=== PATIENT | female | born 1995 | race African-American/Black ===

== ENCOUNTER 2017-06-08 23:51 | Emergency (ER) | payer SELFPAY ==
--- NOTE | 2017-06-09 00:44 | ER Document Report ---
ED General - General Chief Complaint: STD Exposure Stated Complaint: STD CHECK Time Seen by Provider: 06/09/17 00:36 Notes: Patient is a 22-year-old female who presents with complaint of possible STD. She says that she has had some foul-smelling whitish discharge for approximately 10 days. She says that she asked her boyfriend to get tested before the start having sex. He told her that he never heard back and therefore thinks his results are negative but she says that she has been somewhat put off about this and she is unsure if he is telling the truth. No fevers. No vomiting. She has had a slight cough. She does smoke. No abnormal vaginal bleeding or discharge. She does not think she be at this time. She does not always for protection. No abnormal vaginal bleeding. No dysuria. - Related Data Allergies/Adverse Reactions: No Known Allergies Allergy (Verified 06/09/17 01:17) Home Medications: Current Home Medications No Home Medications 06/09/17 [History] Past Medical History - Social History Smoking Status: Current Every Day Smoker Frequency of alcohol use: None Drug Abuse: None Family History: Reviewed & Not Pertinent Renal/ Medical History: Denies: Hx Peritoneal Dialysis Review of Systems - Review of Systems Notes: My Normal Review Basic REVIEW OF SYSTEMS: CONSTITUTIONAL : Denies fever, chills, or sweats. Denies recent illness. RESPIRATORY: Some dry cough. GASTROINTESTINAL: Denies abdominal pain. Denies nausea, vomiting, or diarrhea. Denies constipation. Last BM: GENITOURINARY: Denies difficulty urinating, painful urination, burning, frequency, or blood in urine. FEMALE GENITOURINARY: Abnormal vaginal discharge. MUSCULOSKELETAL: Denies neck or back pain or joint pain or swelling. SKIN: Denies rash or skin lesions. NEUROLOGICAL: Denies altered mental status or loss of consciousness. Denies headache. Denies weakness or paralysis or loss of use of either side. Denies problems with gait or speech. Denies sensory or motor loss. ALL OTHER SYSTEMS REVIEWED AND NEGATIVE. Physical Exam - Vital signs Vitals: Temp Pulse Resp BP Pulse Ox 98.3 F 57 L 16 128/59 H 99 06/09/17 00:08 06/09/17 00:08 06/09/17 00:08 06/09/17 00:08 06/09/17 00:08 - Notes Notes: General Appearance: Well nourished, alert, cooperative, no acute distress, no obvious discomfort. Well-appearing. Vitals: reviewed, See vital signs table. Head: no swelling or tenderness to the head Eyes: PERRL, EOMI, Conjuctiva clear Neck: Supple, no neck tenderness, No thyromegaly Lungs: No wheezing, No rales, No rhonci, No accessory muscle use, good air exchange bilaterally. Heart: Normal rate, Regular rythm, No murmur, no rub Abdomen: Normal BS, soft, No rigidity, No abdominal tenderness, No guarding, no rebound, no abdominal masses, no organomegaly Pelvic exam: Normal external genitalia. Some whitish discharge in vaginal vault. No blood. Extremities: strength 5/5 in all extremities, good pulses in all extremities, no swelling or tenderness in the extremities, no edema. Skin: warm, dry, appropriate color, no rash Neuro: speech clear, oriented x 3, normal affect, responds appropriately to questions. Course - Re-evaluation Re-evalutation: 06/09/17 02:56 Based on patient's history I do suspect that she most likely does have an STD. She does not want to wait for the swabs come back. She prefers prophylactic treatment. I did give her a dose of Rocephin as well as a dose of azithromycin. Patient was discharged home. I did include for her the culture callback number. Encouraged her return to ER if she has any worsening or symptoms, abdominal pain, pelvic pain, or she feels unwell. She is encouraged to avoid sexual activity until she knows that her and her partners are both clear of infection. Patient agrees with plan and will be discharged home. Dictation of this chart was performed using voice recognition software; therefore, there may be some unintended grammatical errors. - Vital Signs Vital signs: Temp Pulse Resp BP Pulse Ox 98.3 F 57 L 16 128/59 H 99 06/09/17 00:08 06/09/17 00:08 06/09/17 00:08 06/09/17 00:08 06/09/17 00:08 Discharge - Discharge Clinical Impression: Vaginal discharge Condition: Good Disposition: HOME, SELF-CARE Additional Instructions: We obtained swabs to check for vaginal infection. These swabs will result by the morning. Please call [phone] for the results of swabs. You have been treated with antibiotics up front so if your swabs are positive you will not need further treatment. Do not be sexually active until you and your partners swabs are negative. Please return to the ER if you have pain, fevers, vomiting, or feel unwell. Forms: Return to Work
[2017-06-09 01:22] LABS: APPEARANCE,URINE SLIGHTLY-CLOUDY; BILIRUBIN,URINE NEGATIVE (NEGATIVE); GLUCOSE, URINE NEGATIVE (NEGATIVE); KETONES,URINE NEGATIVE (NEGATIVE); LEUKOCYTE ESTERASE,URINE NEGATIVE (NEGATIVE); NITRITE,URINE NEGATIVE (NEGATIVE); PROTEIN,URINE NEGATIVE (NEGATIVE); URINE SPECIFIC GRAVITY 1.024; UROBILINOGEN,URINE NEGATIVE mg/dL (<2.0)
[2017-06-09] MEDS ORDERED: AZITHROMYCIN 250 MG TABLET PO ONE (01:25)
[2017-06-09] MEDS ORDERED: CEFTRIAXONE INJ 250 MG VIAL IM ONE (01:26)
[2017-06-09] MEDS ORDERED: LIDOCAINE 1% INJ-PF (10 MG/ML) 30 ML SDV INFIL ONE (01:26)
[2017-06-09 03:06] LABS: CHLAM PCR NOT DETECTED (NOT DETECT)
[2017-06-09 03:28] VITALS: BP 103/45
== END 2017-06-09 03:30 | disposition home or self-care (01) ==
LOC: ER 23:51
DX: N89.8 Other specified noninflammatory disorders of vagina (principal)
CPT/HCPCS: 99283; 96372; 87210; 81001; 87491; 87591; J3490; J0696

== ENCOUNTER 2017-07-19 11:44 | Emergency (ER) | payer SELFPAY ==
[2017-07-19] MEDS ORDERED: ACETAMINOPHEN 325 MG TABLET PO ONE (12:43)
[2017-07-19] MEDS ORDERED: NORMAL SALINE 1000 ML 1,000 ML IV ONE (12:43)
[2017-07-19] MEDS ORDERED: ONDANSETRON HCL INJ/PF 4 MG/2 ML SDV IV ONE (12:43)
--- NOTE | 2017-07-19 12:49 | ER Document Report ---
ED General - General Chief Complaint: Abdominal Pain Stated Complaint: ABDOMINAL PAIN Time Seen by Provider: 07/19/17 12:36 Notes: 22-year-old female whose last menstrual period was approximately 4 weeks ago presents the emergency department complaining of cramping lower abdominal pain suprapubic and right lower quadrant associated with vomiting and headache that gets worse with movement. Denies vaginal bleeding, denies dysuria. Has not yet had an US for dates. TRAVEL OUTSIDE OF THE [place] IN LAST 30 DAYS: No - Related Data Allergies/Adverse Reactions: No Known Allergies Allergy (Verified 06/09/17 01:17) Home Medications: Current Home Medications No Home Medications 07/19/17 [History] Past Medical History - General Information source: Patient - Social History Smoking Status: Current Every Day Smoker Chew tobacco use (# tins/day): No Smoking Education Provided: Yes - 5 minutes Frequency of alcohol use: None Drug Abuse: None - Quit smoking marijuana 1 week ago. Lives with: Spouse/Significant other Family History: Reviewed & Not Pertinent Patient has suicidal ideation: No Patient has homicidal ideation: No Renal/ Medical History: Denies: Hx Peritoneal Dialysis Past Surgical History: Reports: Hx Oral Surgery - Immunizations Hx Diphtheria, Pertussis, Tetanus Vaccination: Yes Review of Systems - Review of Systems Constitutional: No symptoms reported EENT: No symptoms reported Cardiovascular: No symptoms reported Respiratory: No symptoms reported Gastrointestinal: See HPI, Abdominal pain, Nausea, Vomiting Genitourinary: No symptoms reported. denies: Burning, Dysuria Female Genitourinary: See HPI, Last menstrual period - 3 weeks ago, -: Yes All other systems reviewed and negative Physical Exam - Vital signs Vitals: Temp Pulse Resp BP Pulse Ox 98.4 F 63 18 112/68 99 07/19/17 11:51 07/19/17 11:51 07/19/17 11:51 07/19/17 11:51 07/19/17 11:51 Interpretation: Normal - Notes Notes: GENERAL: Alert, interacts well. Tearful, gagging in room, no active vomiting. HEAD: Normocephalic, atraumatic EYES: Pupils equal, round and reactive to light, extraocular movements intact. ENT: Oral mucosa moist, tongue midline. NECK: Full range of motion, supple, trachea midline. LUNGS: Clear to auscultation bilaterally, no wheezes, rales or rhonchi, no respiratory distress. HEART: Regular rate and rhythm, no murmurs, gallops, rubs. ABDOMEN: Soft, suprapubic and right lower quadrant tenderness to palpation, no guarding, rigidity or rebounding, nondistended, bowel sounds present in all 4 quadrants. EXTREMITIES: Moves all 4 extremities spontaneously, no edema, radial and dorsalis pedis pulses 2/4 bilaterally. No cyanosis. NEUROLOGICAL: Alert and oriented x3, normal speech. PSYCH: Anxious and tearful. SKIN: Warm, Dry, normal turgor, no rashes or lesions noted. Course - Re-evaluation Re-evalutation: 07/19/17 15:36 Quantitative beta-hCG is 25,173, urinalysis unremarkable. Ultrasound has been paged multiple times, still unable to take this patient ultrasound. Patient states she is going to need to leave very shortly. Patient is aware that I cannot rule out an ectopic without ultrasound. Patient is not unstable at this time and her abdominal exam is relatively reassuring. Patient will be given a prescription for an outpatient transvaginal ultrasound to rule out ectopic . She will return for vaginal bleeding, lightheadedness, worsening pain or any new or concerning symptoms. 07/19/17 16:43 Patient did end up being able to stay for the ultrasound. Patient will be referred to [facility] for further follow-up, trending of quantitative hCG and repeat ultrasound in approximately a week. Ultrasound shows gestational sac measuring 6 weeks 2 days, questionable pole identified, hypoechoic area seen in the right ovary which could represent a corpus luteum sac. - Vital Signs Vital signs: Temp Pulse Resp BP Pulse Ox 98.4 F 63 18 112/68 99 07/19/17 11:51 07/19/17 11:51 07/19/17 12:15 07/19/17 11:51 07/19/17 11:51 - Laboratory Result Diagrams: 07/19/17 12:50 07/19/17 12:50 Laboratory results interpreted by me: 07/19/17 07/19/17 07/19/17 12:50 12:50 12:50 RDW 15.0 H Beta HCG, Quant 75901.00 H Urine Ketones TRACE H Discharge - Discharge Clinical Impression: Abdominal pain affecting , antepartum Condition: Stable Disposition: HOME, SELF-CARE Additional Instructions: Today your ultrasound showed a that is in the uterus. Since we were not able to see the baby today just the place where the baby will go you will need to have your ultrasound repeated in approximately 1 week. There is also something that looks like a cyst on your right ovary. If your pain worsens you need to return. You also need to continue to follow-up with either the health department or [facility] should your pain continue even if it does not worsen. Return here for worsening pain, vaginal bleeding, dizziness or any new or concerning symptoms. You may also follow-up through the health department. They will help to arrange insurance, WIC and other resources that she may need. They will also help you with your care and vitamins. Please feel free to return to the emergency department at any time. Forms: Follow-Up Radiology Testing, Follow-Up Outpatient Testing Referrals: [facility] [Provider Group] - Follow up as needed
[2017-07-19 13:18] LABS: APPEARANCE,URINE SLIGHTLY-CLOUDY; BILIRUBIN,URINE NEGATIVE (NEGATIVE); GLUCOSE, URINE NEGATIVE (NEGATIVE); KETONES,URINE TRACE mg/dL (NEGATIVE); LEUKOCYTE ESTERASE,URINE NEGATIVE (NEGATIVE); NITRITE,URINE NEGATIVE (NEGATIVE); PROTEIN,URINE NEGATIVE (NEGATIVE); URINE SPECIFIC GRAVITY 1.025; UROBILINOGEN,URINE NEGATIVE mg/dL (<2.0)
[2017-07-19 13:19] LABS: ABSOLUTE EOSINOPHILS # (AUTO) 0.1 10^3/uL (0.0-0.6); ABSOLUTE LYMPHOCYTES (AUTO) 1.7 10^3/uL (0.5-4.7); ABSOLUTE MONOCYTES (AUTO) 0.3 10^3/uL (0.1-1.4); ABSOLUTE NEUT (AUTO) 4.5 10^3/uL (1.7-8.2); BASOPHILS % (AUTO) 0.3 % (0-2); EOSINOPHILS % (AUTO) 0.9 % (0-6); HEMOGLOBIN 13.7 g/dL (12.0-15.5); HGB HCT DIFFERENCE 1.1; LYMPHOCYTES % (AUTO) 25.3 % (13-45); MEAN CORPUSCULAR HEMOGLOBIN 30.3 pg (27.0-33.4); MEAN CORPUSCULAR HGB CONC 34.2 g/dL (32.0-36.0); MEAN CORPUSCULAR VOLUME 89 fl (80-97); MONOCYTES % (AUTO) 5.2 % (3-13); RED BLOOD COUNT 4.51 10^6/uL (3.72-5.28); SEGMENTED NEUTROPHILS % (AUTO) 68.3 % (42-78); WHITE BLOOD COUNT 6.6 10^3/uL (4.0-10.5)
[2017-07-19 13:41] LABS: ALANINE AMINOTRANSFERASE 28 U/L (9-52); ALBUMIN 4.9 g/dL (3.5-5.0); ALKALINE PHOSPHATASE 51 U/L (38-126); ANION GAP 12 (5-19); ASPARTATE AMINO TRANSFERASE 23 U/L (14-36); BILIRUBIN,DIRECT 0.3 mg/dL (0.0-0.4); BILIRUBIN,TOTAL 0.7 mg/dL (0.2-1.3); BLOOD UREA NITROGEN 12 mg/dL (7-20); CALCIUM 9.9 mg/dL (8.4-10.2); CARBON DIOXIDE 25 mmol/L (22-30); CHLORIDE 103 mmol/L (98-107); CREATININE RESULT 0.56 mg/dL (0.52-1.25); GLUCOSE 81 mg/dL (75-110); POTASSIUM 4.2 mmol/L (3.6-5.0); SODIUM 139.5 mmol/L (137-145)
--- NOTE | 2017-07-19 16:39 | RADIOLOGY REPORT (SQ) ---
EXAM DESCRIPTION: U/S OB TRANSVAG W/DOPPLER COMPLETED DATE/TIME: 07/19/2017 4:22 pm REASON FOR STUDY: , cramping low abd pain COMPARISON: None. TECHNIQUE: Transvaginal static and realtime grayscale images acquired of the pelvis. Additional earl cted spectral and color Doppler images recorded. All images stored on PACs. bHC,173 LIMITATIONS: None. FINDINGS: UTERUS: No masses. No anomalies. GESTATIONAL SAC: Gestational sac is identified measuring 6 weeks 2 days YOLK SAC: Not definitely visualized. POLE: Questionable pole is identified. RIGHT ADNEXA: A hypoechoic area is identified in the right ovary with internal debris measuring 1.7 x 1.8 x 2.6 cm in diameters. This could represent a corpus luteum cyst. LEFT ADNEXA: Left ovary is not visualized. FREE FLUID: Free fluid is identified in the posterior cul-de-sac. OTHER: No other significant finding. IMPRESSION: POSSIBLE EARLY INTRAUTERINE . BHCG LEVEL APPROPRIATE FOR ENDOMETRIAL FINDINGS. CONSIDER F/U BHCG AND/OR ULTRASOUND FOR VERIFICATION AND TO EXCLUDE ECTOPIC . Trimester of : First - 0 to 13 weeks. TECHNICAL DOCUMENTATION: JOB ID: [id number] [employer]- All Rights Reserved
[2017-07-19 17:13] VITALS: BP 114/59
== END 2017-07-19 17:08 | disposition home or self-care (01) ==
LOC: ER 11:44
DX: O26.891 Other specified pregnancy related conditions, first trimester (principal); O21.9 Vomiting of pregnancy, unspecified; O99.331 Smoking (tobacco) complicating pregnancy, first trimester; Z71.6 Tobacco abuse counseling; Z3A.01 Less than 8 weeks gestation of pregnancy
CPT/HCPCS: 99406; 99284; 96361; 96374; 36415; 84702; 85025; 80053; 81001; 76817; 93976; J2405; J7030

== ENCOUNTER 2018-01-16 22:27 | Outpatient (CLI) | payer MEDICAID ==
[2018-01-16 23:28] LABS: AMNISURE (ROM) NEGATIVE (NEGATIVE)
[2018-01-16 23:46] LABS: URINE AMPHETAMINES SCREEN NEGATIVE; URINE BARBITURATES SCREEN NEGATIVE; URINE BENZODIAZEPINES SCREEN NEGATIVE; URINE COCAINE SCREEN NEGATIVE; URINE MARIJUANA (THC) SCREEN NEGATIVE; URINE METHADONE SCREEN NEGATIVE; URINE PHENCYCLIDINE SCREEN NEGATIVE
[2018-01-16 23:47] LABS: T.VAGINALIS (WET MOUNT) NO TRICHOMONAS SEEN; WBCS (WET MOUNT) 4+ WBCS SEEN; YEAST (WET MOUNT) NO YEAST SEEN
[2018-01-16 23:48] LABS: BACTERIA (WET MOUNT) 4+ BACTERIA SEEN; RBCS (WET MOUNT) 1+ RBCS SEEN
[2018-01-16 23:52] LABS: APPEARANCE,URINE CLEAR; BILIRUBIN,URINE NEGATIVE (NEGATIVE); COLOR,URINE YELLOW; GLUCOSE, URINE NEGATIVE (NEGATIVE); KETONES,URINE NEGATIVE (NEGATIVE); PROTEIN,URINE NEGATIVE (NEGATIVE); URINE SPECIFIC GRAVITY 1.025; UROBILINOGEN,URINE NEGATIVE mg/dL (<2.0)
[2018-01-16 23:53] LABS: LEUKOCYTE ESTERASE,URINE LARGE (NEGATIVE); NITRITE,URINE NEGATIVE (NEGATIVE)
[2018-01-17 00:47] LABS: CHLAM PCR NOT DETECTED (NOT DETECT); GON PCR NOT DETECTED (NOT DETECT)
[2018-01-17] MEDS ORDERED: METRONIDAZOLE 500 MG TABLET PO ONE (00:51)
[2018-01-17] MEDS ORDERED: METRONIDAZOLE 500 MG TABLET ONE (00:56)
== END 2018-01-17 01:11 | disposition home or self-care (01) ==
LOC: LC 22:27
PROVIDERS: ATTEND Student in an Organized Health Care Education/Training Program
PROC: 4A1HXCZ Monitoring of Products of Conception, Cardiac Rate, External Approach (ICD-10-PCS; principal; 2018-01-16)
DX: O23.593 Infection of other part of genital tract in pregnancy, third trimester (principal); O26.893 Other specified pregnancy related conditions, third trimester; E86.0 Dehydration; Z3A.31 31 weeks gestation of pregnancy
CPT/HCPCS: 84112; 87210; 81001; 87081; 80307; 87491; 87591; 59899; Q0114; J3490

== ENCOUNTER 2018-03-22 19:43 | Inpatient (IN) | payer MEDICAID ==
[2018-03-22 20:17] LABS: APPEARANCE,URINE CLOUDY; BILIRUBIN,URINE NEGATIVE (NEGATIVE); COLOR,URINE YELLOW; GLUCOSE, URINE NEGATIVE (NEGATIVE); KETONES,URINE TRACE mg/dL (NEGATIVE); LEUKOCYTE ESTERASE,URINE LARGE (NEGATIVE); NITRITE,URINE NEGATIVE (NEGATIVE); PROTEIN,URINE 30 mg/dL (NEGATIVE); URINE SPECIFIC GRAVITY 1.024
[2018-03-22 20:33] LABS: URINE AMPHETAMINES SCREEN NEGATIVE; URINE BARBITURATES SCREEN NEGATIVE; URINE BENZODIAZEPINES SCREEN NEGATIVE; URINE COCAINE SCREEN NEGATIVE; URINE MARIJUANA (THC) SCREEN NEGATIVE; URINE METHADONE SCREEN NEGATIVE; URINE PHENCYCLIDINE SCREEN NEGATIVE
[2018-03-22] MEDS ORDERED: HYDROXYZINE PAMOATE 50 MG CAPSULE ONE (22:08)
[2018-03-22] MEDS ORDERED: LIDOCAINE 1% INJ-PF (10 MG/ML) 30 ML SDV ONE (22:08)
[2018-03-22] MEDS ORDERED: CEFTRIAXONE INJ 1000 MG VIAL ONE (22:08)
[2018-03-22] MEDS ORDERED: CEFTRIAXONE INJ 1000 MG VIAL IM ONE (22:09)
[2018-03-22] MEDS ORDERED: LIDOCAINE 1% INJ-PF (10 MG/ML) 30 ML SDV INJ ONE (22:09)
[2018-03-22] MEDS ORDERED: HYDROXYZINE PAMOATE 50 MG CAPSULE PO ONE (22:10)
[2018-03-23] MEDS ORDERED: RINGERS SOLUTION,LACTATED 1,000 ML IV PRN (00:07)
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
[2018-03-23 00:16] LABS: CHLAM PCR NOT DETECTED (NOT DETECT); GON PCR NOT DETECTED (NOT DETECT)
[2018-03-23] MEDS ORDERED: MISOPROSTOL 0.2 MG TABLET ONE (00:19)
[2018-03-23] MEDS ORDERED: OXYTOCIN/NORMAL SALINE 20 UNIT/1,000 ML RTUINJ ONE (00:19)
[2018-03-23] MEDS ORDERED: LIDOCAINE 1% INJ-PF (10 MG/ML) 30 ML SDV ONE (00:19)
[2018-03-23 00:30] LABS: HEMOGLOBIN 11.4 g/dL (12.0-15.5); MEAN CORPUSCULAR HEMOGLOBIN 26.6 pg (27.0-33.4); MEAN CORPUSCULAR HGB CONC 33.5 g/dL (32.0-36.0); MEAN CORPUSCULAR VOLUME 80 fl (80-97); PLATELET COUNT 189 10^3/uL (150-450); RED BLOOD COUNT 4.27 10^6/uL (3.72-5.28); RED CELL DISTRIBUTION WIDTH 15.4 % (11.5-14.0); WHITE BLOOD COUNT 8.9 10^3/uL (4.0-10.5)
[2018-03-23] MEDS ORDERED: PSEUDOEPHEDRINE HCL 30 MG TABLET PO PRN (01:08)
[2018-03-23] MEDS ORDERED: OXYTOCIN/NORMAL SALINE 20 UNIT/1,000 ML RTUINJ IV PRN (01:08)
[2018-03-23] MEDS ORDERED: ZOLPIDEM TARTRATE 5 MG TABLET PO PRN (01:08)
[2018-03-23] MEDS ORDERED: MEASLES,MUMPS&RUBELLA VACC/PF 0.5 ML VIAL SUBCUT PRN (01:08)
[2018-03-23] MEDS ORDERED: PROMETHAZINE HCL 25 MG TABLET PO PRN (01:08)
[2018-03-23] MEDS ORDERED: DIPH/PERTUSS(ACELL)/TETANUS VAC/PF 0.5 ML SYR (>=10YO) IM PRN (01:08)
[2018-03-23] MEDS ORDERED: MAGNESIUM HYDROXIDE SUSP 30 ML UDCUP PO PRN (01:08)
[2018-03-23] MEDS ORDERED: DIPHENHYDRAMINE HCL 25 MG CAPSULE PO PRN (01:08)
[2018-03-23] MEDS ORDERED: PROMETHAZINE HCL INJ 25 MG/1 ML VIAL IV PRN (01:08)
[2018-03-23] MEDS ORDERED: GLYCERIN/WITCH HAZEL LEAF 1 EACH MED..PAD TP PRN (01:08)
[2018-03-23] MEDS ORDERED: PROMETHAZINE HCL 25 MG SUPP.RECT PR PRN (01:08)
[2018-03-23] MEDS ORDERED: DIBUCAINE 1% OINTMENT 28 GM TP PRN (01:08)
[2018-03-23] MEDS ORDERED: BENZOCAINE/MENTHOL AEROSOL SPRAY 56 ML TOP PRN (01:08)
[2018-03-23] MEDS ORDERED: ACETAMINOPHEN 650 MG SUPP.RECT PR PRN (01:08)
[2018-03-23] MEDS ORDERED: NA PHOS,M-B/NA PHOS,DI-BA (ADULT) 133 ML ENEMA PR PRN (01:08)
[2018-03-23] MEDS ORDERED: IBUPROFEN 800 MG TABLET ONE (01:31)
--- NOTE | 2018-03-23 02:22 | Warning Signs in Babies ---
VOD Warning Signs Datetime Report Generated by [facility]: 03/23/2018 02:22 VOD#608 -Warning Signs in Babies: Needs to be viewed. (01/16/2018 22:29:Dayanara Harris RN)
--- NOTE | 2018-03-23 03:43 | Delivery Summary ---
Del Sum A-C Datetime Report Generated by CPN: 03/23/2018 03:43 DELIVERY PERSONNEL DELIVERY PERSONNEL: [id number] Delivery Doctor:: Linda Banks MD Labor and Delivery Nurse:: Dayanara Harris jigger crown pouncing machine operator Nurse:: Marti Wilde RN Licensing And Registration Director/CENTRAL OFFICE SUPERVISOR: Alfredo Ertel, CENTRAL OFFICE SUPERVISOR MATERNAL INFORMATION Delivery Anesthesia: None Medications After Delivery: Pitocin Drip 20 Units/1000ml NSS Estimated Blood Loss (ml): 200 Maternal Complications: Precipitous Labor (<3hrs) LABOR SUMMARY EDC: 03/17/2018 00:00 No. Babies in Womb: 1 Attempted: No Labor Anesthesia: None LABOR INFORMATION Reason for Induction: Not Applicable Onset of Labor: 03/23/2018 00:01 Complete Dilatation: 03/23/2018 00:46 Oxytocin: N/A Group B Beta Strep: Negative Antibiotics # of Doses: 0 Antibiotics Time of Last Dose: N/A Name of Antibiotic Given: N/A Steroids Given: None Reason Steroids Not Administered: Not Applicable MEMBRANES Membranes Rupture Method: Artificial Rupture of Membranes: 03/23/2018 00:45 Length of Rupture (hr): 0.23 Amniotic Fluid Color: Clear Amniotic Fluid Amount: Small Amniotic Fluid Odor: Normal STAGES OF LABOR Stage 1 hr: 0 Stage 1 min: 45 Stage 2 hr: 0 Stage 2 min: 13 Stage 3 hr: 0 Stage 3 min: 3 Total Time in Labor hr: 1 Total Time in Labor min: 1 VAGINAL DELIVERY Episiotomy: None Laceration #1: None Laceration Extension #1: N/A Sponge Count Correct: N/A Sharps Count Correct: N/A CSECTION DELIVERY Primary Indication: N/A Secondary Indication: N/A CSection Incidence: N/A Labor: N/A Elective: N/A CSection Incision: N/A BABY A INFORMATION Delivery Date/Time: 03/23/2018 00:59 Method of Delivery: Vaginal Born in Route : No : N/A Forceps: N/A Vacuum Extraction: N/A Shoulder Dystocia : No PRESENTATION/POSITION BABY A Presentation: Cephalic Cephalic Presentation: Vertex Vertex Position: Left Occipital Anterior Breech Presentation: N/A PLACENTA INFORMATION BABY A Placenta Delivery Time : 03/23/2018 01:02 Placenta Method of Delivery: Spontaneous Placenta Status: Delivered SCORES BABY A Heart Rate 1 min: >100 bpm Resp Effort 1 min: Good Cry Reflex Irritability 1 min: Cough or Sneeze or Pulls Away Muscle Tone 1 min: Active Motion Color 1 min: Body [place], Extremities Blue Resuscitation Effort 1 min: Tactile Stimulation SCORE 1 MIN: 9 Heart Rate 5 min: >100 bpm Resp Effort 5 min: Good Cry Reflex Irritability 5 min: Cough or Sneeze or Pulls Away Muscle Tone 5 min: Active Motion Color 5 min: Body [place], Extremities Blue SCORE 5 MIN: 9 INFORMATION BABY A Gestational Age at Delivery: 40.6 Gestational Status: Full Term- 39- 40.6 Weeks Infant Outcome : Liveborn Infant Condition : Stable Infant Sex: Male IDENTIFICATION BABY A Verification Date/Time: 03/23/2018 01:12 ID Band Number: [id number] Mother's Name Verified: Yes RN Verifying : Grecia Tirado, RN / K Rooco, RN WEIGHT/LENGTH BABY A Infant Birthweight (gm): 3790 Infant Weight (lb): 8 Weight (oz): 6 Length (in): 20.00 Infant Length (cm): 50.80 CORD INFORMATION BABY A No. Cord Vessels: 3 Nuchal Cord : N/A Cord Blood Taken: Yes-For Storage (Mom's Blood type +) Infant Suction: Mouth; Nose ASSESSMENT BABY A Complications: Other Complications- Other: terminal mec Physical Findings at Delivery: Within Normal Limits Physical Findings- Other: initial assessment to be performed by nursery nurse Respirations: Appears Normal Skin to Skin: Yes Skin to Skin Time (min): 60 Beer Cooler/ALS Called : No Care By: Fabiano Wilde RN Transferred To: Remains with Mother BABY B INFORMATION : N/A SIGNATURES Signature: with User ID: [email or web address]
[2018-03-23] MEDS: ACETAMINOPHEN WITH CODEINE #3 TABLET PO PRN ×3 (07:17→18:01)
[2018-03-23] MEDS: IBUPROFEN 800 MG TABLET PO SCH ×3 (07:39→22:04)
[2018-03-23] MEDS: FAMOTIDINE 20 MG TABLET PO SCH ×2 (09:58→22:05)
[2018-03-23] MEDS: SENNOSIDES/DOCUSATE 8.6-50 MG 1 EACH TABLET PO SCH (09:58)
[2018-03-23] MEDS: DOCUSATE SODIUM 100 MG CAPSULE PO SCH ×2 (09:58→17:32)
[2018-03-23] MEDS: PRENATAL VITAMIN W DHA CAPSULE PO SCH (09:59)
[2018-03-23] MEDS: FERROUS SULFATE 325 MG TABLET PO SCH ×2 (09:59→17:32)
[2018-03-23] MEDS: NITROFURANTOIN MONOHYD/M-CRYST 100 MG CAPSULE PO SCH (18:00)
[2018-03-24] MEDS: IBUPROFEN 800 MG TABLET PO SCH ×3 (06:16→22:42)
[2018-03-24 07:46] LABS: HEMATOCRIT 30.9 % (36.0-47.0); HEMOGLOBIN 10.1 g/dL (12.0-15.5); MEAN CORPUSCULAR HEMOGLOBIN 26.1 pg (27.0-33.4); MEAN CORPUSCULAR HGB CONC 32.6 g/dL (32.0-36.0); MEAN CORPUSCULAR VOLUME 80 fl (80-97); PLATELET COUNT 197 10^3/uL (150-450); RED BLOOD COUNT 3.86 10^6/uL (3.72-5.28); RED CELL DISTRIBUTION WIDTH 15.7 % (11.5-14.0); WHITE BLOOD COUNT 6.5 10^3/uL (4.0-10.5)
[2018-03-24] MEDS: SENNOSIDES/DOCUSATE 8.6-50 MG 1 EACH TABLET PO SCH (09:45)
[2018-03-24] MEDS: DOCUSATE SODIUM 100 MG CAPSULE PO SCH ×2 (09:45→18:12)
[2018-03-24] MEDS: FERROUS SULFATE 325 MG TABLET PO SCH ×2 (09:45→18:12)
[2018-03-24] MEDS: PRENATAL VITAMIN W DHA CAPSULE PO SCH (09:45)
[2018-03-24] MEDS: NITROFURANTOIN MONOHYD/M-CRYST 100 MG CAPSULE PO SCH ×2 (09:45→18:12)
[2018-03-24] MEDS: FAMOTIDINE 20 MG TABLET PO SCH ×2 (09:46→22:42)
[2018-03-24] MEDS: ACETAMINOPHEN WITH CODEINE #3 TABLET PO PRN (10:34)
--- NOTE | 2018-03-24 11:40 | PDOC PROGRESS REPORT ---
Subjective-OB Progress Note for:: 03/24/18 Subjective: 22yo G5 now P4 s/p ppd1. Ambulating, voiding and without difficulty. Reports malodorous urine but denies burning, urgency, frequency or pain. No other concerns. Physical Exam (OB) Vital Signs: Temp Pulse Resp BP Pulse Ox 97.9 F 62 16 100/55 L 100 03/24/18 08:30 03/24/18 08:30 03/24/18 08:30 03/24/18 08:30 03/24/18 08:30 Intake & Output 03/23/18 03/24/18 03/25/18 06:59 06:59 06:59 Intake Total 500 Balance 500 Weight 85.5 kg - General General Appearance: Appears well In distress: None - PIH/Pre-Eclampsia Headache: Absent Epigastric Pain: No Visual Changes: No - Episiotomy/Laceration Site Condition: N/A - Lochia Lochia Amount: Scant < 10 ml Lochia Color: Rubra/Red - Abdomen Description: Soft, Round Hernia Present: No Fundal Description: Firm Fundal Height: u/u - u/2 - Respiratory Respiratory Status: No respiratory distress - Extremities Upper extremity: Normal inspection Lower extremities: Normal inspection - Neurological Cognition: Normal Orientation: AAOx4 - Psychological Associated symptoms: Normal affect, Normal mood Objective-Diagnostic Laboratory: 03/24/18 07:26 03/24/18 07:26 WBC 6.5 RBC 3.86 Hgb 10.1 L Hct 30.9 L MCV 80 MCH 26.1 L MCHC 32.6 RDW 15.7 H Plt Count 197 Assessment and Plan(PN) - Assessment and Plan (1) Acute blood loss anemia Is this a current diagnosis for this admission?: Yes Plan: increase dietary iron and FeSO4 BID (2) Short interval between pregnancies affecting , antepartum Is this a current diagnosis for this admission?: Yes Plan: conference planner placed by admitting provider.Consider LARC. (3) Normal vaginal delivery Is this a current diagnosis for this admission?: Yes Plan: routine pp care - Time Spent with Patient Time with patient: Less than 15 minutes Medications reviewed and adjusted accordingly: Yes - Disposition Anticipated Discharge: Home Within: within 24 hours
[2018-03-25] MEDS: IBUPROFEN 800 MG TABLET PO SCH (07:53)
--- NOTE | 2018-03-25 09:15 | PDOC DISCHARGE SUMMARY ---
Final Diagnosis Discharge Date: 03/25/18 Discharge Data - Discharge Medication Prescriptions: Ibuprofen [Motrin 800 mg Tablet] 800 mg PO Q8HP PRN #30 tablet PRN Reason: Abdominal Cramping Docusate Sodium [Colace 100 mg Capsule] 100 mg PO BID #60 capsule Ferrous Sulfate [Feosol 325 mg Tablet] 325 mg PO BID #60 tablet Vit/Dha [ Multi + Dha Capsule] 1 cap PO DAILY #90 capsule Home Medications: Docusate Sodium [Colace 100 mg Capsule] 100 mg PO BID #60 capsule 03/24/18 Ferrous Sulfate [Feosol 325 mg Tablet] 325 mg PO BID #60 tablet 03/24/18 Ibuprofen [Motrin 800 mg Tablet] 800 mg PO Q8HP PRN #30 tablet 03/24/18 Vit/Dha [ Multi + Dha Capsule] 1 cap PO DAILY #90 capsule 03/24 Gestational Age: 40.6 Reason(s) for Admission: Onset of Labor Procedures: NST Intrapartum Procedure(s): Spontaneous Vaginal Delivery - Diagnosis Test Laboratory: Temp Pulse Resp BP Pulse Ox 97.9 F 68 17 115/56 L 99 03/24/18 20:06 03/24/18 20:06 03/24/18 20:06 03/24/18 20:06 03/24/18 20:06 03/22/18 03/23/18 03/24/18 19:52 00:19 07:26 RBC 4.27 3.86 Hgb 11.4 L 10.1 L Hct 34.0 L 30.9 L Urine Opiates Screen NEGATIVE - Discharge information/Instructions Discharge Activity: Activity As Tolerated, Balance Activity w/Rest, No Lifting Over 10 Pounds, No Lifting/Push/Pulling, Pelvic Rest, No tub bath, Walk Frequently Discharge Diet: Regular Disposition: HOME, SELF-CARE [facility]: [facility] in: 4, Weeks
[2018-03-25] MEDS: DOCUSATE SODIUM 100 MG CAPSULE PO SCH (09:28)
[2018-03-25] MEDS: FERROUS SULFATE 325 MG TABLET PO SCH (09:28)
[2018-03-25] MEDS: NITROFURANTOIN MONOHYD/M-CRYST 100 MG CAPSULE PO SCH (09:28)
[2018-03-25] MEDS: SENNOSIDES/DOCUSATE 8.6-50 MG 1 EACH TABLET PO SCH (09:28)
[2018-03-25] MEDS: PRENATAL VITAMIN W DHA CAPSULE PO SCH (09:28)
[2018-03-25] MEDS: FAMOTIDINE 20 MG TABLET PO SCH (09:28)
[2018-03-25] MEDS: ACETAMINOPHEN WITH CODEINE #3 TABLET PO PRN (11:22)
[2018-03-25 11:42] VITALS: BP 100/55
== END 2018-03-25 13:10 | disposition home or self-care (01) | DRG 775 ==
LOC: LC 19:43 → LR 03-23 00:08 → 2S 03-23 03:06
PROVIDERS: ADMIT Obstetrics & Gynecology; ATTEND Obstetrics & Gynecology
PROC: 10E0XZZ Delivery of Products of Conception, External Approach (ICD-10-PCS; principal; 2018-03-23)
DX: O99.334 Smoking (tobacco) complicating childbirth (principal); D62 Acute posthemorrhagic anemia; F17.211 Nicotine dependence, cigarettes, in remission; O62.3 Precipitate labor; O77.0 Labor and delivery complicated by meconium in amniotic fluid; Z37.0 Single live birth; Z3A.40 40 weeks gestation of pregnancy; O99.02 Anemia complicating childbirth
CPT/HCPCS: 36415; 80307; 81005; 85027; 86592; 86850; 86900; 86901; 87086; 87491; 87591; J0696; J2590; J3490; J7120; J8499